=== PATIENT | female | born 1980 ===

== ENCOUNTER 2016-06-07 08:45 | Outpatient (CLI) | payer OTHER ==
--- NOTE | 2016-06-08 09:11 | Ultrasound Report ---
ULTRASOUND THYROID SCAN History: Thyromegaly, enlarged thyroid gland. Technique: Grayscale ultrasound with color Doppler interrogation. Findings: Thyromegaly is present. The right thyroid lobe measures 7 cm in length. The left thyroid lobe measures 7 cm in length. There are 2 tiny cysts measuring 3 mm in the mid and inferior right thyroid lobe. There is a solitary 7 x 10 mm well-defined nodule in the left thyroid lobe. 3 mm cyst is also noted in the left thyroid lobe. There is no evidence for suspicious mass, calcifications or cervical adenopathy. Impression: Diffuse enlargement of the thyroid gland. Few scattered thyroid cysts. One benign appearing left thyroid nodule. No suspicious thyroid mass.
== END 2016-06-07 08:46 | disposition home or self-care (01) ==
LOC: SPVWC 08:45
PROVIDERS: ATTEND Family Medicine Adult Medicine
DX: E04.9 Nontoxic goiter, unspecified (principal)
CPT/HCPCS: 76536